=== PATIENT | female | born 2000 | race Caucasian/White ===

== ENCOUNTER 2023-08-09 11:40 | Emergency (ER) | payer MEDICAID ==
[2023-08-09] MEDS: traMADol 50 MG Tab PO STA (12:46)
== END 2023-08-09 14:05 | disposition home or self-care (01) ==
LOC: MW.ED 11:40
DX: L03.115 Cellulitis of right lower limb (principal); F17.210 Nicotine dependence, cigarettes, uncomplicated; Z75.8 Other problems related to medical facilities and other health care; Z88.8 Allergy status to other drugs, medicaments and biological substances; Z79.899 Other long term (current) drug therapy; Z79.84 Long term (current) use of oral hypoglycemic drugs
CPT/HCPCS: 73610; 73630; 99283; A9270